=== PATIENT | male | born 1960 | race Caucasian/White ===

== ENCOUNTER 2016-09-28 18:35 | Emergency (ER) | payer BC, OTHER ==
[~2016-09-28] VITALS: Ht 165.1 cm; Wt 69.0 kg
[~2016-09-28 18:35] MED LIST: ASPI81CH CHEW; FOLI400T PO; LOVA10TA PO; ZOLO25TA PO
[2016-09-28 18:36] VITALS: BP 184/90; PULSE 74; RESP 17; TEMP 98.4; O2SAT 98
--- NOTE | 2016-09-28 18:51 | PD ---
Physical Exam Date Seen by Provider: Sep 28, 2016 Time Seen by Provider: 18:48 Narrative 56 YOWM C/O SORE 4 DAYS. SENT FROM URGENT CARE FOR ABSCESS TONSIL. VS REVIEWED WAITING FOR BED PLACEMENT Data Data Last Documented VS Vital Signs Date Time Temp Pulse Resp B/P Pulse Ox O2 Delivery O2 Flow Rate FiO2 09/28/16 18:36 98.4 74 17 184/90 98 MDM Supervised Visit with BRYNN: Stefan Payton Sep 28, 2016 18:51
[2016-09-28] MEDS ORDERED: SODIUM CHLOR 0.9% 1000 ML INJ 1,000 ML IV ONE (19:00)
[2016-09-28 19:29] LABS: BASOPHIL % 0.4 % (0.0-2.0); EOSINOPHIL # 0.1 TH/MM3 (0-0.4); EOSINOPHIL % 0.8 % (0.0-4.0); HEMATOCRIT 41.8 % (39.0-51.0); HEMO FLAGS DIFF FINAL; LYMPH % 10.3 % (9.0-44.0); LYMPHOCYTE # 1.3 TH/MM3 (1.0-4.8); MEAN CORPUSCULAR HEMOGLOBIN 30.1 PG (27.0-34.0); MEAN CORPUSCULAR HGB CONC 33.4 % (32.0-36.0); MONO % 7.2 % (0.0-8.0); NEUT % 81.3 % (16.0-70.0); PLATELET COUNT 237 TH/MM3 (150-450); RED BLOOD COUNT 4.64 MIL/MM3 (4.50-5.90); RED CELL DISTRIBUTION WIDTH 13.7 % (11.6-17.2); WHITE BLOOD COUNT 12.3 TH/MM3 (4.0-11.0)
[2016-09-28 19:50] LABS: BICARBONATE 28.3 MEQ/L (21.0-32.0); POTASSIUM 4.3 MEQ/L (3.5-5.1)
[2016-09-28] MEDS ORDERED: IOHEXOL 350 MG/ML 10 ML VIAL (for RAD DIAG) IV ONE (20:47)
--- NOTE | 2016-09-28 21:09 | PD ---
HPI Chief Complaint: ENT Complaint Time Seen by Provider: 21:05 Travel History International Travel<30 days: Yes Contact w/Intl Traveler<30days: Yes Name of Country Traveled to: [place] Traveled to known affect area: No History of Present Illness HPI Patient comes in complain of sore throat ongoing for 4 days. Patient is progressively worse, radiating to his left ear. Patient went to urgent care after working today and was sent to the emergency department to rule out peritonsillar abscess. Patient taking ibuprofen for the pain with minimal relief. Pain is worse with swallowing. Denies any known fevers, chest pain, shortness of breath, nausea, vomiting, or abdominal pain. Patient does report he was recently around his daughter who just came from college with mono. [facility] Past Medical History Depression: Yes Social History Tobacco Use: No Substance Use: No Allergies-Medications (Allergen,Severity, Reaction): Coded Allergies: No Known Allergies (Unverified , 09/28/16) Reported Meds & Prescriptions Reported Meds & Active Scripts Active Tramadol (Tramadol HCl) 50 Mg Tab 50 Mg PO Q8H PRN Medrol Dosepak (Methylprednisolone) 4 Mg Dspk 4 Mg PO DIRECTED Per Pharmacist direction Reported Acyclovir 200 Mg Cap 400 Mg PO 5 TIMES A DAY Folic Acid Unknown Strength Tab Unknown Dose PO DAILY Lovastatin Unknown Strength Tab Unknown Dose PO DAILY Zoloft (Sertraline HCl) Unknown Strength Tab Unknown Dose PO DAILY Review of Systems Except as stated in HPI: all other systems reviewed are Neg Physical Exam Narrative GENERAL: Well-developed, well nourished, in no acute distress, and non-ill appearing. SKIN: Focused skin assessment warm and dry. HEAD: Atraumatic. Normocephalic. EYES: Pupils equal and round. EOMI. No scleral icterus. No injection or drainage. ENT: No nasal bleeding or discharge. Mucous membranes pink and moist. Tympanic membranes pearly mckeon bilaterally. Posterior pharynx erythematous with edema noted left. Patient is able swallow own saliva. There is no drooling. Patient speaking in full sentences without difficulty. NECK: Trachea midline. No cervical lymphadenopathy. Supple. No nuclear rigidity. CARDIOVASCULAR: Regular rate and rhythm. No murmur appreciated. RESPIRATORY: No accessory muscle use. No respiratory distress. Clear to auscultation. Breath sounds equal bilaterally. MUSCULOSKELETAL: No obvious deformities. No clubbing. No cyanosis. No edema. Full range of motion. NEUROLOGICAL: Awake and alert. No obvious cranial nerve deficits. Motor grossly within normal limits. Normal speech. PSYCHIATRIC: Appropriate mood and affect; insight and judgment normal. Data Data Last Documented VS Vital Signs Date Time Temp Pulse Resp B/P Pulse Ox O2 Delivery O2 Flow Rate FiO2 09/28/16 21:07 16 09/28/16 18:36 98.4 74 184/90 98 Orders Complete Blood Count With Diff (09/28/16 18:51) Basic Metabolic Panel (Bmp) (09/28/16 18:51) Iv Access Insert/Monitor (09/28/16 18:51) Ct Soft Tiss Neck W Iv Cont (09/28/16 18:51) Sodium Chlor 0.9% 1000 Ml Inj (Ns 1000 M (09/28/16 19:00) Iohexol 350 Inj (Omnipaque 350 Inj) (09/28/16 20:47) Dexamethasone Inj (Decadron Inj) (09/28/16 21:15) Group A Rapid Strep Screen (09/28/16 21:11) Monoscreen (09/28/16 21:19) Strep Culture (Group A) (09/28/16 21:15) Labs Laboratory Tests Test 09/28/16 09/28/16 19:02 21:20 White Blood Count 12.3 TH/MM3 Red Blood Count 4.64 MIL/MM3 Hemoglobin 14.0 GM/DL Hematocrit 41.8 % Mean Corpuscular Volume 90.0 FL Mean Corpuscular Hemoglobin 30.1 PG Mean Corpuscular Hemoglobin 33.4 % Concent Red Cell Distribution Width 13.7 % Platelet Count 237 TH/MM3 Mean Platelet Volume 8.6 FL Neutrophils (%) (Auto) 81.3 % Lymphocytes (%) (Auto) 10.3 % Monocytes (%) (Auto) 7.2 % Eosinophils (%) (Auto) 0.8 % Basophils (%) (Auto) 0.4 % Neutrophils # (Auto) 10.0 TH/MM3 Lymphocytes # (Auto) 1.3 TH/MM3 Monocytes # (Auto) 0.9 TH/MM3 Eosinophils # (Auto) 0.1 TH/MM3 Basophils # (Auto) 0.0 TH/MM3 CBC Comment DIFF FINAL Differential Comment Sodium Level 138 MEQ/L Potassium Level 4.3 MEQ/L Chloride Level 105 MEQ/L Carbon Dioxide Level 28.3 MEQ/L Anion Gap 5 MEQ/L Blood Urea Nitrogen 12 MG/DL Creatinine 0.87 MG/DL Estimat Glomerular Filtration 91 ML/MIN Rate Random Glucose 89 MG/DL Calcium Level 8.6 MG/DL Monoscreen NEG MDM Medical Decision Making Medical Screen Exam Complete: Yes Emergency Medical Condition: Yes Interpretation(s) CT neck soft tissue read by the radiologist shows: Soft tissue swelling the left tonsillar region with partial effacement of the left oropharynx. Findings nonspecific but presumably inflammatory in nature. No discrete abscess. No adenopathy. Differential Diagnosis Strep pharyngitis, peritonsillar abscess, retropharyngeal abscess, viral pharyngitis, mono, other Narrative Course Patient looks great, non-ill appearing. The patient is tolerating fluids and is well hydrated. Appears viral pharyngitis with viral symptom complex. No clinical evidence by history or evaluation to suspect meningitis and/or sepsis. There was no evidence to suggest peritonsillar abscess or retropharyngeal abscess. I discussed with the patient, diagnosis, plan of care and to follow up with the patients primary physician. The patient was instructed to return if the worsens in anyway, especially if not tolerating fluids, increased pain or swelling, difficulty swallowing or breathing, or as needed. The patient agreed with plan. Patient in no obvious distress upon re-evaluation. Patient reports some improvement of symptoms status post IV Decadron. All pertinent laboratory/ Radiology result(s) discussed with patient/family. Patient was asked if they wanted to speak to my attending, which the patient did not wish to do at this time. Discussed patient with Dr. Villar prior to discharge, who is in agreement with plan of care and disposition. Any questions/concerns in reference to patient diagnosis/condition discussed and clarified prior to patient's discharge. Reinforced sheer importance of close follow up with patient 's primary physician or primary care clinic and/or ENT. Instructed patient to return to ED immediately, if symptoms return/worsen. Pt showed understanding of above instructions. Further instructions and recommendations were detailed in discharge paperwork. Pt ambulated without difficulty out of ED at discharge. Diagnosis Primary Impression: Viral pharyngitis Ruled Out: Peritonsillar abscess Patient Instructions: General Instructions, Pharyngitis (ED) Additional Instructions: Follow-up with your primary care physician and/or ENT in 3 days for reevaluation. Take all medication as prescribed. Use [id number] Tylenol and/or ibuprofen as needed for pain. Follow instructions the packing. Gargle with warm salt water gargles. Drink plenty of non-caffeinated and nonalcoholic fluids. Return to the emergency department if symptoms get worse. Med/Other Pt SpecificInfo: Prescription(s) given Scripts Tramadol 50 Mg Tab50 Mg PO Q8H PRN (PAIN) #5 TAB Ref 0 Prov:Sonya Villar MD 09/28/16 Methylprednisolone Dosepak (Medrol Dosepak)4 Mg Dspk4 Mg PO DIRECTED #1 DSPK Ref 0 Per Pharmacist direction Prov:Sonya Villar MD 09/28/16 Disposition: 01 DISCHARGE HOME Condition: Stable Ernesto Masterson Sep 28, 2016 21:09
[2016-09-28] MEDS ORDERED: ACYC200C66 PO (21:11)
[2016-09-28] MEDS ORDERED: DEXAMETHASONE SOD PHOS 20 MG/5 ML VIAL IV PUSH ONE (21:15)
--- NOTE | 2016-09-28 21:44 | RADRPT ---
EXAM DATE/TIME: 09/28/2016 20:32 [facility] COMPARISON: No previous studies available for comparison. INDICATIONS : Sore throat, evaluate abscess. IV CONTRAST: 70 cc Omnipaque 350 (iohexol) IV RADIATION DOSE: 14.13 CTDIvol (mGy) MEDICAL HISTORY : None SURGICAL HISTORY : None. ENCOUNTER: Initial ACUITY: 3 days PAIN SCALE: 5/10 LOCATION: throat TECHNIQUE: Volumetric scanning of the neck was performed. Using automated exposure control and adjustment of th e mA and/or kV according to patient size, radiation dose was kept as low as reasonably achievable to obtain optimal diagnostic quality images. DICOM format image data is available electronically for r eview and comparison. FINDINGS: There is soft tissue swelling and enlargement in the left tonsillar region with partial effacement of the left posterior oropharynx. This is nonspecific but presumably inflammatory in nature. There is a lso a small associated calcification. No discrete or drainable fluid collections are present. No airw ay obstructing lesions or foreign bodies. No acute bony abnormality. Visualized paranasal sinuses are clear. CONCLUSION: 1. Soft tissue swelling the left tonsillar region with partial effacement of the left oropharynx. Fin dings nonspecific but presumably inflammatory in nature. No discrete abscess. No adenopathy. Stefan Harper MD on September 28, 2016 at 21:39 Board Certified Radiologist. This report was verified electronically.
[2016-09-28] MEDS ORDERED: TRAM50TA PO (22:21)
[2016-09-28] MEDS ORDERED: MEDR4PAK PO (22:21)
[2016-09-28 22:41] VITALS: BP 138/81; TEMP 98.7
== END 2016-09-28 22:42 | disposition home or self-care (01) ==
LOC: NEPC 18:35
DX: J02.9 Acute pharyngitis, unspecified (principal); F32.9 Major depressive disorder, single episode, unspecified; Z79.899 Other long term (current) drug therapy
CPT/HCPCS: 70491; 80048; 85025; 86308; 87081; 87880; 96361; 96374; 99285; J1100; J7030; Q9967